=== PATIENT | male | born 2000 | race African-American/Black ===

== ENCOUNTER 2020-04-03 22:43 | Emergency (ER) | payer SELFPAY ==
[~2020-04-03] VITALS: Ht 185.4 cm; Wt 64.9 kg
[2020-04-03 22:48] VITALS: BP 135/71
[2020-04-03 23:02] VITALS: BP 135/71
--- NOTE | 2020-04-03 23:02 | NUR ---
20 Y/O MALE PRESENTS TO ER WITH C/O ABDOMINAL PAIN X 4 QUADRANTS, AND VOMITING X 1 WEEK. 8/10 PAIN IN ALL QUADRANTS. PT STATES HE AND A FRIEND WENT TO [facility] 03/24/20 HAD FOOD, AND PT HAS BEEN VOMITING, AND HAVING INTERMITTENT DIARRHEA X1 WEEK. LAST FOOD INGESTED WAS AT [place] BETWEEN [id number] TODAY, PT STATES HE BEGAN TO IMMEDIATELY BEGIN TO VOMIT. ALSO C/O NAUSEA, HEADACHES. DENIES FEVER, SOB, CHILLS, COUGH, BLOOD IN STOOL, OR VOMIT. VSS, R/R EQUAL, AND UNLABORED. SIDE RAIL X1, BED IN LOW POSITION, WILL CONTINUE TO MONITOR. NKDA DENIES PMH
--- NOTE | 2020-04-03 23:31 | NUR ---
ERMD AT BEDSIDE.
[2020-04-03] MEDS ORDERED: ONDANSETRON 4 MG/2 ML VIAL IVP ONE (23:40)
[2020-04-03] MEDS ORDERED: NACL 0.9% 1,000 ML IV ONE (23:40)
[2020-04-04 00:08] LABS: BASOPHILS % (AUTO) 0.7 % (0.0-2.0); EOSINOPHILS # (AUTO) 0.3 K/uL (0-0.4); EOSINOPHILS % (AUTO) 6.7 % (0.0-4.0); HEMATOCRIT 47.3 % (36-52); HEMOGLOBIN 16.3 g/dL (12.0-18.0); LYMPHOCYTES # (AUTO) 1.9 K/uL (2.0-11.5); LYMPHOCYTES % (AUTO) 45.2 % (20.5-51.1); MEAN CORPUSCULAR HEMOGLOBIN 31 pg (27-31); MEAN CORPUSCULAR HGB CONC 35 g/dL (33-37); MEAN CORPUSCULAR VOLUME 90.7 fL (80-94); MONOCYTES # (AUTO) 0.3 K/uL (0.8-1.0); MONOCYTES % (AUTO) 7.1 % (1.7-9.3); NEUTROPHILS # (AUTO) 1.7 K/uL (1.8-7.7); NEUTROPHILS % (AUTO) 40.3 % (42.2-75.2); PLATELET COUNT (AUTO) 260 K/uL (140-450); RED BLOOD CELL COUNT(AUTO) 5.22 MIL/uL (4.20-6.10); RED CELL DISTRIBUTION WIDTH 12.1 % (11.6-13.7); WHITE BLOOD COUNT (AUTO) 4.2 K/uL (4.5-11.0)
[2020-04-04 00:22] LABS: ALBUMIN 4.3 g/dL (3.4-5.0); ANION GAP 9.5 (8-16); CARBON DIOXIDE 31.9 mmol/L (21-32); CREATININE 1.2 mg/dL (0.6-1.3); POTASSIUM 4.4 mmol/L (3.5-5.1); TOTAL BILIRUBIN 0.5 mg/dL (0.0-1.0)
--- NOTE | 2020-04-04 00:45 | NUR ---
PT TOLERATED PO FLUIDS WELL.
== END 2020-04-04 00:56 | disposition home or self-care (01) ==
LOC: MED 22:43
DX: R11.2 Nausea with vomiting, unspecified (principal); R19.7 Diarrhea, unspecified
CPT/HCPCS: 36415; 80053; 85025; 96361; 96374; 99283; J2405; J7030